=== PATIENT | female | born 1985 | race Caucasian/White ===

== ENCOUNTER 2021-10-27 15:38 | Emergency (ER) | payer BC ==
[~2021-10-27] VITALS: Ht 172.7 cm; Wt 54.4 kg
[2021-10-27] MEDS ORDERED: ONDANSETRON ODT 4 MG TAB.RAPDIS SL ONE ×2 (16:00→17:30)
[2021-10-27] MEDS ORDERED: MORPHINE SULFATE 4 MG/1 ML DISP.SYRIN IM ONE (16:00)
--- NOTE | 2021-10-27 16:00 | NUR ---
DR BRENNAN AT BEDSIDE FOR EVALUATION. RAKESH SUPPORT TO RUE; ICEPACK APPLIED PER MD ORDER.
[2021-10-27] MEDS ORDERED: MORPHINE SULFATE 4 MG/1 ML DISP.SYRIN ONE (16:06)
[2021-10-27] MEDS ORDERED: ONDANSETRON ODT 4 MG TAB.RAPDIS ONE ×2 (16:07→17:32)
[2021-10-27] MEDS ORDERED: NEOMY/BACITRA/POLYMYXIN B OINT UD PACKET TP ONE ×2 (16:45→17:05)
[2021-10-27] MEDS ORDERED: ONDA8TAB13 PO (16:47)
[2021-10-27] MEDS ORDERED: HYDR-4209 PO (16:47)
[2021-10-27] MEDS ORDERED: IBUP-1955 PO (16:47)
--- NOTE | 2021-10-27 17:05 | NUR ---
Pt states improvement in pain. Sling place and proper use explained with statement of understanding. Pt called spouse to prepare for D/C. Will provide pt with disc copy of radiologic studies.
--- NOTE | 2021-10-27 17:50 | NUR ---
Aftercare information reviewed with spouse and pt. Patient discharged to home in stable condition. Written and verbal after care instructions given. Patient verbalizes understanding of instructions. Stressed follow up or return to ER for worsening s/s.
[2021-10-27 17:52] VITALS: BP 113/66
== END 2021-10-27 17:50 | disposition home or self-care (01) ==
LOC: ER 15:38
DX: S59.901A Unspecified injury of right elbow, initial encounter (principal); V49.40XA Driver injured in collision with unspecified motor vehicles in traffic accident, initial encounter; Y92.410 Unspecified street and highway as the place of occurrence of the external cause; S50.812A Abrasion of left forearm, initial encounter
CPT/HCPCS: 73080; 73090; 96372; 99284; J2270; A4663; Q0162